=== PATIENT | female | born 1960 | race Caucasian/White ===

== ENCOUNTER 2017-09-13 18:12 | Emergency (ER) | payer OTHER ==
[~2017-09-13] VITALS: Ht 175.3 cm; Wt 70.0 kg
[2017-09-13 18:18] VITALS: BP 174/71; PULSE 74; RESP 16; TEMP 97.5; O2SAT 95
[2017-09-13] MEDS ORDERED: SODIUM CHLOR 0.9% 1000 ML INJ 1,000 ML IV SCH (19:11)
[2017-09-13] MEDS ORDERED: METOCLOPRAMIDE HCL 10 MG/2 ML VIAL IV PUSH ONE (19:15)
[2017-09-13] MEDS ORDERED: SODIUM CHLORIDE 0.9% FLUSH 10 ML FLUSH IVF PRN (19:15)
--- NOTE | 2017-09-13 19:19 | PD ---
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 Symptoms have been going on for about a week. Today the patient reports headache started this afternoon and has gradually worsened, described as pressure, frontal, currently 7 out of 10. Cough is productive of yellowish/greenish sputum. No hemoptysis. No CP. The patient is concerned about possibly being anemic. PFSH Past Medical History COPD: Yes Respiratory: Yes (COPD) Tetanus Vaccination: Unknown Influenza Vaccination: No ?: Not LMP: MENOPAUSAL Past Surgical History Abdominal Surgery: Yes Cholecystectomy: Yes Social History Alcohol Use: No Tobacco Use: Yes Substance Use: No Allergies-Medications (Allergen,Severity, Reaction): Coded Allergies: Sulfa (Sulfonamide Antibiotics) (Verified Allergy, Intermediate, HIVES, 09/13/17) Reported Meds & Prescriptions Reported Meds & Active Scripts Active Reported Prednisone (21) 10 mg tab Dose Pack (Prednisone) 10 Mg Pack 10 Mg PO DIRECTED Prozac (Fluoxetine HCl) 20 Mg Cap 20 Mg PO DAILY Review of Systems Except as stated in HPI: all other systems reviewed are Neg Physical Exam Narrative GENERAL: Well-developed, well-nourished, comfortable, no apparent distress. SKIN: Focused skin assessment warm/dry. No rash. HEAD: Atraumatic. Normocephalic. EYES: Pupils equal, round, 3 mm, reactive to light. No scleral icterus. No injection or drainage. ENT: No nasal bleeding or discharge. Mucous membranes pink and moist. NECK: Trachea midline. No JVD. No nuchal rigidity. CARDIOVASCULAR: Regular rate and rhythm. RESPIRATORY: No accessory muscle use. Clear to auscultation. Breath sounds equal bilaterally. GASTROINTESTINAL: Abdomen soft, non-tender, nondistended. MUSCULOSKELETAL: No obvious deformities. No clubbing. No cyanosis. No edema. NEUROLOGICAL: Awake and alert. No obvious cranial nerve deficits. Motor grossly within normal limits. Normal speech. PSYCHIATRIC: Appropriate mood and affect; insight and judgment normal. Data Data Last Documented VS Vital Signs Date Time Temp Pulse Resp B/P (MAP) Pulse Ox O2 Delivery O2 Flow Rate FiO2 09/13/17 21:18 69 16 165/66 (99) 97 Room Air 09/13/17 18:18 97.5 Orders Orders Complete Blood Count With Diff (09/13/17 19:11) Comprehensive Metabolic Panel (09/13/17 19:11) Act Partial Throm Time (Ptt) (09/13/17 19:11) Prothrombin Time / Inr (Pt) (09/13/17 19:11) Urinalysis - C+S If Indicated (09/13/17 19:11) Influenzae A/B Antigen (09/13/17 19:11) Iv Access Insert/Monitor (09/13/17 19:11) Ecg Monitoring (09/13/17 19:11) Oximetry (09/13/17 19:11) Chest, Single Ap (09/13/17 19:11) Sodium Chloride 0.9% Flush (Ns Flush) (09/13/17 19:15) Ct Brain W/O Iv Contrast(Rout) (09/13/17 ) Type And Screen (09/13/17 19:11) Metoclopramide Inj (Reglan Inj) (09/13/17 19:15) Sodium Chlor 0.9% 1000 Ml Inj (Ns 1000 M (09/13/17 19:11) Ketorolac Inj (Toradol Inj) (09/13/17 20:45) Ct Pulmonary Angiogram (09/13/17 20:36) Iohexol 350 Inj (Omnipaque 350 Inj) (09/13/17 21:20) Cefuroxime (Ceftin) (09/13/17 21:45) Labs Laboratory Tests Test 09/13/17 20:00 09/13/17 21:17 White Blood Count 9.3 TH/MM3 Red Blood Count 5.19 MIL/MM3 Hemoglobin 14.2 GM/DL Hematocrit 43.9 % Mean Corpuscular Volume 84.5 FL Mean Corpuscular Hemoglobin 27.4 PG Mean Corpuscular Hemoglobin Concent 32.4 % Red Cell Distribution Width 18.2 % Platelet Count 231 TH/MM3 Mean Platelet Volume 9.1 FL Neutrophils (%) (Auto) 63.5 % Lymphocytes (%) (Auto) 22.4 % Monocytes (%) (Auto) 6.5 % Eosinophils (%) (Auto) 6.9 % Basophils (%) (Auto) 0.7 % Neutrophils # (Auto) 5.9 TH/MM3 Lymphocytes # (Auto) 2.1 TH/MM3 Monocytes # (Auto) 0.6 TH/MM3 Eosinophils # (Auto) 0.6 TH/MM3 Basophils # (Auto) 0.1 TH/MM3 CBC Comment DIFF FINAL Differential Comment Prothrombin Time 10.3 SEC Prothromb Time International Ratio 1.0 RATIO Activated Partial Thromboplast Time 25.1 SEC Blood Urea Nitrogen 16 MG/DL Creatinine 0.70 MG/DL Random Glucose 94 MG/DL Total Protein 7.4 GM/DL Albumin 3.8 GM/DL Calcium Level 10.1 MG/DL Alkaline Phosphatase 39 U/L Aspartate Amino Transf (AST/SGOT) 14 U/L Alanine Aminotransferase (ALT/SGPT) 23 U/L Total Bilirubin 0.4 MG/DL Sodium Level 139 MEQ/L Potassium Level 3.7 MEQ/L Chloride Level 104 MEQ/L Carbon Dioxide Level 26.5 MEQ/L Anion Gap 9 MEQ/L Estimat Glomerular Filtration Rate 86 ML/MIN Urine Color YELLOW Urine Turbidity CLEAR Urine pH 5.5 Urine Specific Aiken 1.020 Urine Protein NEG mg/dL Urine Glucose (UA) NEG mg/dL Urine Ketones NEG mg/dL Urine Occult Blood TRACE Urine Nitrite NEG Urine Bilirubin NEG Urine Leukocyte Esterase NEG Urine RBC 0-3 /hpf Urine WBC 0-2 /hpf Urine Squamous Epithelial Cells 0-5 /hpf Urine Mucus FEW /lpf Microscopic Urinalysis Comment CULT NOT INDICATED MDM Medical Decision Making Medical Screen Exam Complete: Yes Emergency Medical Condition: Yes Differential Diagnosis Influenza/flulike illness, URI, pneumonia, anemia, intracranial abnormality, SAH /meningitis/encephalitis unlikely Narrative Course Initial vital signs show heart rate 74, blood pressure 174/71, pulse ox 95% on room air, oral temp of 97.5F. CBC: WBC 9.3, hemoglobin 14.2, hematocrit 43.9, platelets 231, neutrophils 63.5% . CMP is unremarkable. Influenza is negative. Chest x-ray: Minimal bibasilar densities. Ct pulmonary/angiogram: CONCLUSION: 1. No evidence for pulmonary embolus. 2. Debris/mucus within bronchi bilaterally and minimal bibasilar patchy infiltrates. CT head: No acute intracranial disease. Right maxillary sinus disease. The patient was made aware of all findings. She is resting comfortably. She is not in any respiratory distress. O2 saturation is 98% on room air. Plan is to start her on Ceftin which will cover not only her sinusitis but also her pneumonia and have her follow-up with her primary care physician within the next week. Patient is amenable to this plan. She was informed on when to return to the emergency department. She verbalizes understanding and agreement with plan. Diagnosis Primary Impression: Pneumonia Qualified Codes: J18.9 - Pneumonia, unspecified organism Additional Impression: Sinusitis Qualified Codes: J01.00 - Acute maxillary sinusitis, unspecified Referrals: Primary Care Physician 3 days Additional Instructions: Follow-up with your primary care physician this week. Take antibiotic as prescribed. Return to the emergency department for worsening symptoms or any other concerns. Scripts Cefuroxime (Ceftin) 250 Mg Tab 500 MG PO BID for 10 Days, #40 TAB Prov: Juve Floyd MD 09/13/17 Disposition: 01 DISCHARGE HOME Condition: Stable Juve Floyd MD Sep 13, 2017 19:19
[2017-09-13] MEDS ORDERED: PROZ20CA11 PO (19:33)
[2017-09-13] MEDS ORDERED: PRED10PA PO (19:34)
[2017-09-13 20:12] VITALS: BP 162/61; PULSE 63; RESP 16; O2SAT 95
[2017-09-13 20:13] VITALS: O2SAT 96
[2017-09-13 20:16] LABS: AUTOMATED NEUTROPHIL # 5.9 TH/MM3 (1.8-7.7); BASOPHIL # 0.1 TH/MM3 (0-0.2); BASOPHIL % 0.7 % (0.0-2.0); EOSINOPHIL # 0.6 TH/MM3 (0-0.4); EOSINOPHIL % 6.9 % (0.0-4.0); HEMATOCRIT 43.9 % (35.0-46.0); HEMOGLOBIN 14.2 GM/DL (11.6-15.3); LYMPH % 22.4 % (9.0-44.0); LYMPHOCYTE # 2.1 TH/MM3 (1.0-4.8); MEAN CELL VOLUME 84.5 FL (80.0-100.0); MEAN CORPUSCULAR HEMOGLOBIN 27.4 PG (27.0-34.0); MEAN CORPUSCULAR HGB CONC 32.4 % (32.0-36.0); MEAN PLATELET VOLUME 9.1 FL (7.0-11.0); MONO % 6.5 % (0.0-8.0); MONOCYTE # 0.6 TH/MM3 (0-0.9); NEUT % 63.5 % (16.0-70.0); PLATELET COUNT 231 TH/MM3 (150-450); RED BLOOD COUNT 5.19 MIL/MM3 (4.00-5.30); RED CELL DISTRIBUTION WIDTH 18.2 % (11.6-17.2); WHITE BLOOD COUNT 9.3 TH/MM3 (4.0-11.0)
--- NOTE | 2017-09-13 20:23 | RADRPT ---
EXAM DATE/TIME: 09/13/2017 20:13 [facility] COMPARISON: No previous studies available for comparison. INDICATIONS : Weakness, body aches, and fever for 1 month. MEDICAL HISTORY : Chronic obstructive pulmonary disease. SURGICAL HISTORY : None. ENCOUNTER: Initial ACUITY: 1 month PAIN SCORE: 0/10 LOCATION: Bilateral chest FINDINGS: A single view of the chest demonstrates minimal radiopaque densities in the lung bases. The cardiomed iastinal contours are unremarkable. Old left-sided left eighth rib fracture. CONCLUSION: Minimal bibasilar densities. Navi Nixon MD on September 13, 2017 at 20:18 Board Certified Radiologist. This report was verified electronically.
[2017-09-13 20:24] LABS: CHLORIDE 104 MEQ/L (98-107); SODIUM (NA) 139 MEQ/L (136-145)
[2017-09-13 20:27] LABS: CALCIUM 10.1 MG/DL (8.5-10.1)
[2017-09-13 20:28] LABS: ALBUMIN 3.8 GM/DL (3.4-5.0); BICARBONATE 26.5 MEQ/L (21.0-32.0); BLOOD UREA NITROGEN 16 MG/DL (7-18); GLUCOSE,RANDOM 94 MG/DL (74-106)
[2017-09-13 20:30] LABS: PROTHROMBIN TIME - PATIENT 10.3 SEC (9.8-11.6)
[2017-09-13 20:31] LABS: ALT (GPT) 23 U/L (10-53); AST (GOT) 14 U/L (15-37); GLOMERULAR FILTRATION RATE 86 ML/MIN (>89)
[2017-09-13 20:32] LABS: TOTAL BILIRUBIN ADULT 0.4 MG/DL (0.2-1.0); TOTAL PROTEIN 7.4 GM/DL (6.4-8.2)
[2017-09-13 20:34] LABS: ALKALINE PHOSPHATASE 39 U/L (45-117)
--- NOTE | 2017-09-13 20:41 | RADRPT ---
EXAM DATE/TIME: 09/13/2017 20:17 [facility] COMPARISON: No previous studies available for comparison. INDICATIONS : Cephalgia. RADIATION DOSE: 61.31 CTDIvol (mGy) MEDICAL HISTORY : Chronic obstructive pulmonary disease. SURGICAL HISTORY : None. ENCOUNTER: Initial ACUITY: 3 days PAIN SCALE: 7/10 LOCATION: Bilateral frontal TECHNIQUE: Multiple contiguous axial images were obtained of the head. Using automated exposure control and adj ustment of the mA and/or kV according to patient size, radiation dose was kept as low as reasonably a chievable to obtain optimal diagnostic quality images. DICOM format image data is available electro nically for review and comparison. FINDINGS: CEREBRUM: The ventricles are normal for age. No evidence of midline shift, mass lesion, hemorrhage or acute in farction. No extra-axial fluid collections are seen. POSTERIOR FOSSA: The cerebellum and brainstem are intact. The 4th ventricle is midline. The cerebellopontine angle i s unremarkable. EXTRACRANIAL: The visualized portion of the orbits is intact. Density right maxillary sinus. SKULL: The calvaria is intact. No evidence of skull fracture. CONCLUSION: No acute intracranial disease. Right maxillary sinus disease. Navi Nixon MD on September 13, 2017 at 20:38 Board Certified Radiologist. This report was verified electronically.
[2017-09-13] MEDS ORDERED: KETOROLAC TROMETHAMINE 30 MG/ML (IVP) VIAL IV PUSH ONE (20:45)
[2017-09-13 21:18] VITALS: BP 165/66; PULSE 69; RESP 16; O2SAT 97
[2017-09-13] MEDS ORDERED: IOHEXOL 350 MG/ML 10 ML VIAL (for RAD DIAG) IVCONTRAST ONE (21:20)
[2017-09-13 21:25] LABS: BILIRUBIN, URINE NEG (NEG); BLOOD, URINE TRACE (NEG); GLUCOSE,URINE NEG (NEG); KETONE, URINE NEG (NEG); NITRITE,URINE NEG (NEG); PH, URINE 5.5 (5.0-8.5); URINE LEUKOCYTE ESTERASE NEG (NEG)
--- NOTE | 2017-09-13 21:26 | RADRPT ---
EXAM DATE/TIME: 09/13/2017 21:00 [facility] COMPARISON: CHEST SINGLE AP, September 13, 2017, 20:13. INDICATIONS : Shortness of breath. IV CONTRAST: 75 cc Omnipaque 350 (iohexol) IV RADIATION DOSE: 11.08 CTDIvol (mGy) MEDICAL HISTORY : Chronic obstructive pulmonary disease. HIV. SURGICAL HISTORY : None. ENCOUNTER: Initial ACUITY: 3 days PAIN SCALE: 0/10 LOCATION: chest TECHNIQUE: Volumetric scanning of the chest was performed using a pulmonary embolism protocol MIP images were re constructed. Using automated exposure control and adjustment of the mA and/or kV according to patien t size, radiation dose was kept as low as reasonably achievable to obtain optimal diagnostic quality images. DICOM format image data is available electronically for review and comparison. Follow-up recommendations for detected pulmonary nodules are based at a minimum on nodule size and pa tient risk factors according to Fleischner Society Guidelines. FINDINGS: PULMONARY ARTERIES: No filling defects are seen in the pulmonary arteries through the segmental level. LUNGS: There is minimal bibasilar patchy infiltrates. No concerning pulmonary nodule is visualized. Filling defects within lingular, left lower lobe, right lower lobe and right middle lobe bronchi. PLEURAE: There is no pleural thickening or pleural effusion. MEDIASTINUM: There is good visualization of the great vessels of the middle mediastinum. No evidence of mediastin al or hilar adenopathy/mass. MUSCULOSKELETAL: Within normal limits for patient age. MISCELLANEOUS: The visualized upper abdominal organs demonstrate no acute abnormality. CONCLUSION: 1. No evidence for pulmonary embolus. 2. Debris/mucus within bronchi bilaterally and minimal bibasilar patchy infiltrates. Navi Nixon MD on September 13, 2017 at 21:21 Board Certified Radiologist. This report was verified electronically.
[2017-09-13 21:31] LABS: URINE COLOR YELLOW (YELLW/STRAW)
[2017-09-13 21:32] LABS: MUCUS URINE FEW /lpf (OCC); SQUAMOUS EPITHELIAL CELL URINE 0-5 /hpf (0-5)
[2017-09-13 21:33] LABS: RBC, URINE 0-3 /hpf (0-3); WBC, URINE 0-2 /hpf (0-5)
[2017-09-13] MEDS ORDERED: CEFU1TAB18 PO (21:36)
[2017-09-13] MEDS ORDERED: CEFUROXIME AXETIL 500 MG TAB PO ONE (21:45)
== END 2017-09-13 22:23 | disposition home or self-care (01) ==
LOC: PHED 18:12
DX: J18.9 Pneumonia, unspecified organism (principal); J01.00 Acute maxillary sinusitis, unspecified; J44.0 Chronic obstructive pulmonary disease with (acute) lower respiratory infection; Z21 Asymptomatic human immunodeficiency virus [HIV] infection status; Z72.0 Tobacco use; Z88.2 Allergy status to sulfonamides; Z90.49 Acquired absence of other specified parts of digestive tract; Z79.899 Other long term (current) drug therapy
CPT/HCPCS: 70450; 71045; 71275; 80053; 81001; 85025; 85610; 85730; 86850; 86900; 86901; 87804; 96361; 96374; 96375; 99285; J1885; J2765; J7030; Q9967

== ENCOUNTER 2017-10-15 14:11 | Emergency (ER) | payer OTHER ==
[~2017-10-15] VITALS: Ht 172.7 cm; Wt 71.4 kg
[~2017-10-15 14:11] MED LIST: CEFU1TAB18 PO; PRED10PA PO; PROZ20CA11 PO
[2017-10-15 14:20] VITALS: BP 110/56; PULSE 79; RESP 16; TEMP 98.6; O2SAT 95
[2017-10-15] MEDS ORDERED: VENTAER INH (14:39)
[2017-10-15] MEDS ORDERED: LAMO25 PO (14:39)
[2017-10-15] MEDS ORDERED: EMTR1TAB2 PO (14:39)
--- NOTE | 2017-10-15 14:43 | PD ---
HPI Chief Complaint: Cold / Flu Symptoms Time Seen by Provider: 14:28 Travel History International Travel<30 days: No Contact w/Intl Traveler<30days: No Traveled to known affect area: No History of Present Illness HPI This is a 57-year-old female with history of HIV on HARRT. Reports last viral load was undetectable and CD4 count was "normal/good". She reports history of cough for approximately one month. She was originally seen and diagnosed with pneumonia. At the time she was started on antibiotics which improved her symptoms. Small 2 weeks ago her was hospitalized and she spent an extended period of time in the hospital with him. Her cough and symptoms were emergency approximately one week ago. He reports subjective fever last week. No fevers currently. Reporting a productive cough with colored phlegm. Denies chest pain or shortness breath. Severity is moderate. No aggravating or alleviating factors PFSH Past Medical History COPD: Yes Immune Disorder: Yes (HIV) Respiratory: Yes (asthma) ?: Not Past Surgical History Abdominal Surgery: Yes Cholecystectomy: Yes Social History Alcohol Use: No Tobacco Use: No (states quit 7 years ago ) Substance Use: No Allergies-Medications (Allergen,Severity, Reaction): Coded Allergies: Cephalosporins (Verified Allergy, Severe, Hives, 10/15/17) Sulfa (Sulfonamide Antibiotics) (Verified Allergy, Intermediate, HIVES, 10/15/17) Reported Meds & Prescriptions Reported Meds & Active Scripts Active Reported Ventolin Hfa 18 GM Inh (Albuterol Sulfate) 90 Mcg/Act Aer 2 Puff INH Q4-6H PRN Lamictal (Lamotrigine) 25 Mg Tab 25 Mg PO DAILY Odefsey (Spwhfgkupxfph-Byxelidnylv-Iripmlwnp Alafenam) 200-200-25 Mg Tab 1 Tab PO DAILY Prozac (Fluoxetine HCl) 20 Mg Cap 20 Mg PO DAILY Review of Systems Except as stated in HPI: all other systems reviewed are Neg General / Constitutional: No: Fever Eyes: No: Visual changes HENT: Positive: Headaches, Congestion Cardiovascular: No: Chest Pain or Discomfort Respiratory: Positive: Cough Gastrointestinal: No: Abdominal Pain Genitourinary: No: Dysuria Musculoskeletal: No: Pain Physical Exam Narrative GENERAL: Alert and nontoxic-appearing 49-year-old female SKIN: Warm and dry. No rash HEAD: Normocephalic. EYES: No injection or drainage. NECK: Supple. No meningismus. CARDIOVASCULAR: Regular rate and rhythm RESPIRATORY: Breath sounds equal bilaterally. No accessory muscle use. Rhonchorous cough GASTROINTESTINAL: Abdomen soft, non-tender, nondistended. MUSCULOSKELETAL: No cyanosis, or edema. BACK: Nontender without obvious deformity. No CVA tenderness. Data Data Last Documented VS Vital Signs Date Time Temp Pulse Resp B/P (MAP) Pulse Ox O2 Delivery O2 Flow Rate FiO2 10/15/17 14:20 98.6 79 16 110/56 (74) 95 Orders Orders Influenzae A/B Antigen (10/15/17 14:49) Chest, Single Ap (10/15/17 ) MDM Medical Decision Making Medical Screen Exam Complete: Yes Emergency Medical Condition: Yes Differential Diagnosis Pneumonia, bronchitis, influenza Narrative Course 57-year-old female here with cough and left-sided rib pain intermittently for one month. Patient is nontoxic-appearing. She was originally treated for pneumonia one month ago he reports symptom improvement with antibiotics. Symptoms returned approximately 2 weeks ago. She has a rhonchorous cough. cxr: Negative for acute disease Influenza: Negative This was discussed with patient and family. She'll be treated for bronchitis. She is instructed to follow-up with her primary doctor for recheck. Return for acute worsening of the symptoms. Diagnosis Primary Impression: Bronchitis Referrals: Primary Care Physician Additional Instructions: Medications as prescribed. Stay Well-hydrated by drinking plenty of fluids Use her albuterol inhaler as needed for shortness of breath and wheezing. Follow-up the primary doctor for recheck. Return if he developed acute worsening of symptoms Scripts Benzonatate (Tessalon Perles) 100 Mg Cap 200 MG PO TID Y for COUGH, #14 CAP 0 Refills Prov: Lynne Palencia 10/15/17 Levofloxacin (Levaquin) 500 Mg Tablet 500 MG PO DAILY for Infection for 7 Days, #7 TAB 0 Refills Prov: Lynne Palencia 10/15/17 Disposition: 01 DISCHARGE HOME Condition: Stable Lynne Palencia Oct 15, 2017 14:43
--- NOTE | 2017-10-15 15:10 | RADRPT ---
EXAM DATE/TIME: 10/15/2017 14:57 [facility] COMPARISON: CHEST SINGLE AP, September 13, 2017, 20:13. INDICATIONS : Fever, left side chest pain, nausea, fatigue MEDICAL HISTORY : HIV Chronic obstructive pulmonary disease. SURGICAL HISTORY : None. ENCOUNTER: Initial ACUITY: 1 month PAIN SCORE: 10/10 LOCATION: Bilateral chest FINDINGS: The lungs are clear without infiltrate, nodule, or mass. There is no appreciable pleural effusion fo r technique. Heart and mediastinum are unremarkable. CONCLUSION: No acute cardiopulmonary disease. Pat Reese MD on October 15, 2017 at 15:07 Board Certified Radiologist. This report was verified electronically.
[2017-10-15] MEDS ORDERED: BENZ100 PO (15:42)
[2017-10-15] MEDS ORDERED: LEVA500T33 PO (15:42)
[2017-10-15] MEDS ORDERED: LEVOFLOXACIN 500 MG TAB PO ONE (16:00)
== END 2017-10-15 15:57 | disposition home or self-care (01) ==
LOC: PHEFT 14:11
DX: J40 Bronchitis, not specified as acute or chronic (principal); J44.9 Chronic obstructive pulmonary disease, unspecified; Z21 Asymptomatic human immunodeficiency virus [HIV] infection status; Z87.891 Personal history of nicotine dependence; Z88.2 Allergy status to sulfonamides; Z88.8 Allergy status to other drugs, medicaments and biological substances; Z79.899 Other long term (current) drug therapy
CPT/HCPCS: 71045; 87804; 99284

== ENCOUNTER 2017-10-20 11:11 | Emergency (ER) | payer OTHER ==
[~2017-10-20] VITALS: Ht 175.3 cm; Wt 70.0 kg
[~2017-10-20 11:11] MED LIST changes: +BENZ100 PO; -CEFU1TAB18 PO; +EMTR1TAB2 PO; +LAMO25 PO; +LEVA500T33 PO; -PRED10PA PO; +VENTAER INH
[2017-10-20 11:13] VITALS: BP 119/82; PULSE 78; RESP 14; TEMP 98.2; O2SAT 98
[2017-10-20 11:41] VITALS: BP 142/66; PULSE 71; RESP 17; O2SAT 97
[2017-10-20] MEDS ORDERED: SODIUM CHLORIDE 0.9% FLUSH 10 ML FLUSH IVF PRN (11:45)
--- NOTE | 2017-10-20 11:58 | PD ---
HPI Chief Complaint: Respiratory Symptoms Time Seen by Provider: 11:40 Travel History International Travel<30 days: No Contact w/Intl Traveler<30days: No Traveled to known affect area: No History of Present Illness HPI This is a pleasant 57-year-old female with history of HIV on HARRT, last viral load is undetectable and CD4 is more than "GOOD". Patient was recently diagnosed with bronchitis and was put on Levaquin last week. She has been compliant with her antibiotics, she had 3 more doses to take. She is here for fever that comes and goes, T-max is 101.2 that was 2 days ago, cough productive of yellow sputum, night sweats. She says that her cough is getting better but wanted to come to the ER to get checked out. Denies any chest pain, no recent travel although reports visiting her in the hospital in the last week. Patient used to smoke regularly, she has history of COPD only taking albuterol inhaler as needed. She had to use her albuterol inhaler 4 times in the last week. She denies any shortness of breath. She is currently not in acute distress breathing comfortably on bed and speaks in full sentences. PFSH Past Medical History Depression: Yes COPD: Yes Immune Disorder: Yes (HIV) Respiratory: Yes Tetanus Vaccination: > 5 Years Influenza Vaccination: No ?: Not Past Surgical History Abdominal Surgery: Yes Cholecystectomy: Yes Social History Alcohol Use: No Tobacco Use: No Substance Use: No Allergies-Medications (Allergen,Severity, Reaction): Coded Allergies: Cephalosporins (Verified Allergy, Severe, Hives, 10/20/17) Sulfa (Sulfonamide Antibiotics) (Verified Allergy, Intermediate, HIVES, 10/20/17) Reported Meds & Prescriptions Reported Meds & Active Scripts Active Tessalon Perles (Benzonatate) 100 Mg Cap 200 Mg PO TID PRN Levaquin (Levofloxacin) 500 Mg Tablet 500 Mg PO DAILY 7 Days Reported Ventolin Hfa 18 GM Inh (Albuterol Sulfate) 90 Mcg/Act Aer 2 Puff INH Q4-6H PRN Odefsey (Uygvnomfkmbzm-Klttlzheljc-Jkhksxntr Alafenam) 200-200-25 Mg Tab 1 Tab PO DAILY Prozac (Fluoxetine HCl) 20 Mg Cap 20 Mg PO DAILY Review of Systems Except as stated in HPI: all other systems reviewed are Neg General / Constitutional: Positive: Fever Respiratory: Positive: Cough, Shortness of Breath Gastrointestinal: Positive: Nausea, Vomiting Physical Exam Narrative GENERAL: No acute distress, breathing comfortably, speaks in full sentences. SKIN: Focused skin assessment warm/dry. HEAD: Atraumatic. Normocephalic. EYES: Pupils equal and round. No scleral icterus. No injection or drainage. ENT: No nasal bleeding or discharge. Mucous membranes pink and moist. NECK: Trachea midline. No JVD. CARDIOVASCULAR: Regular rate and rhythm. No murmur appreciated. RESPIRATORY: No accessory muscle use. Clear to auscultation. Breath sounds equal bilaterally. GASTROINTESTINAL: Abdomen soft, non-tender, nondistended. Hepatic and splenic margins not palpable. MUSCULOSKELETAL: No obvious deformities. No clubbing. No cyanosis. No edema. NEUROLOGICAL: Awake and alert. No obvious cranial nerve deficits. Motor grossly within normal limits. Normal speech. PSYCHIATRIC: Appropriate mood and affect; insight and judgment normal. Data Data Last Documented VS Vital Signs Date Time Temp Pulse Resp B/P (MAP) Pulse Ox O2 Delivery O2 Flow Rate FiO2 10/20/17 11:41 71 17 142/66 (91) 97 Room Air 10/20/17 11:13 98.2 Orders Orders Electrocardiogram (10/20/17 11:43) Complete Blood Count With Diff (10/20/17 11:43) Comprehensive Metabolic Panel (10/20/17 11:43) Chest, Pa & Lat (10/20/17 11:43) Sodium Chloride 0.9% Flush (Ns Flush) (10/20/17 11:45) Ondansetron Inj (Zofran Inj) (10/20/17 13:00) Labs Laboratory Tests Test 10/20/17 11:50 White Blood Count 5.5 TH/MM3 Red Blood Count 5.17 MIL/MM3 Hemoglobin 15.1 GM/DL Hematocrit 43.0 % Mean Corpuscular Volume 83.2 FL Mean Corpuscular Hemoglobin 29.2 PG Mean Corpuscular Hemoglobin Concent 35.1 % Red Cell Distribution Width 15.8 % Platelet Count 143 TH/MM3 Mean Platelet Volume 9.1 FL Neutrophils (%) (Auto) 52.9 % Lymphocytes (%) (Auto) 34.1 % Monocytes (%) (Auto) 8.5 % Eosinophils (%) (Auto) 3.8 % Basophils (%) (Auto) 0.7 % Neutrophils # (Auto) 2.9 TH/MM3 Lymphocytes # (Auto) 1.9 TH/MM3 Monocytes # (Auto) 0.5 TH/MM3 Eosinophils # (Auto) 0.2 TH/MM3 Basophils # (Auto) 0.0 TH/MM3 CBC Comment DIFF FINAL Differential Comment Blood Urea Nitrogen 7 MG/DL Creatinine 0.74 MG/DL Random Glucose 90 MG/DL Total Protein 8.1 GM/DL Albumin 3.9 GM/DL Calcium Level 9.0 MG/DL Alkaline Phosphatase 36 U/L Aspartate Amino Transf (AST/SGOT) 26 U/L Alanine Aminotransferase (ALT/SGPT) 18 U/L Total Bilirubin 0.5 MG/DL Sodium Level 135 MEQ/L Potassium Level 3.7 MEQ/L Chloride Level 101 MEQ/L Carbon Dioxide Level 25.7 MEQ/L Anion Gap 8 MEQ/L Estimat Glomerular Filtration Rate 81 ML/MIN MDM Medical Decision Making Medical Screen Exam Complete: Yes Emergency Medical Condition: Yes Medical Record Reviewed: Yes Interpretation(s) Last 24 hours Impressions Chest X-Ray 10/20/17 1143 Signed Impressions: Service Date/Time: October 12:02 - CONCLUSION: The lungs are clear. No infiltrate seen. Julien Rodriguez MD Laboratory Tests Test 10/20/17 11:50 White Blood Count 5.5 TH/MM3 (4.0-11.0) Red Blood Count 5.17 MIL/MM3 (4.00-5.30) Hemoglobin 15.1 GM/DL (11.6-15.3) Hematocrit 43.0 % (35.0-46.0) Mean Corpuscular Volume 83.2 FL (80.0-100.0) Mean Corpuscular Hemoglobin 29.2 PG (27.0-34.0) Mean Corpuscular Hemoglobin Concent 35.1 % (32.0-36.0) Red Cell Distribution Width 15.8 % (11.6-17.2) Platelet Count 143 TH/MM3 (150-450) Mean Platelet Volume 9.1 FL (7.0-11.0) Neutrophils (%) (Auto) 52.9 % (16.0-70.0) Lymphocytes (%) (Auto) 34.1 % (9.0-44.0) Monocytes (%) (Auto) 8.5 % (0.0-8.0) Eosinophils (%) (Auto) 3.8 % (0.0-4.0) Basophils (%) (Auto) 0.7 % (0.0-2.0) Neutrophils # (Auto) 2.9 TH/MM3 (1.8-7.7) Lymphocytes # (Auto) 1.9 TH/MM3 (1.0-4.8) Monocytes # (Auto) 0.5 TH/MM3 (0-0.9) Eosinophils # (Auto) 0.2 TH/MM3 (0-0.4) Basophils # (Auto) 0.0 TH/MM3 (0-0.2) CBC Comment DIFF FINAL Differential Comment Blood Urea Nitrogen 7 MG/DL (7-18) Creatinine 0.74 MG/DL (0.50-1.00) Random Glucose 90 MG/DL (74-106) Total Protein 8.1 GM/DL (6.4-8.2) Albumin 3.9 GM/DL (3.4-5.0) Calcium Level 9.0 MG/DL (8.5-10.1) Alkaline Phosphatase 36 U/L (45-117) Aspartate Amino Transf (AST/SGOT) 26 U/L (15-37) Alanine Aminotransferase (ALT/SGPT) 18 U/L (10-53) Total Bilirubin 0.5 MG/DL (0.2-1.0) Sodium Level 135 MEQ/L (136-145) Potassium Level 3.7 MEQ/L (3.5-5.1) Chloride Level 101 MEQ/L (98-107) Carbon Dioxide Level 25.7 MEQ/L (21.0-32.0) Anion Gap 8 MEQ/L (5-15) Estimat Glomerular Filtration Rate 81 ML/MIN (>89) Vital Signs Date Time Temp Pulse Resp B/P (MAP) Pulse Ox O2 Delivery O2 Flow Rate FiO2 10/20/17 11:41 71 17 142/66 (91) 97 Room Air 10/20/17 11:13 98.2 78 14 119/82 (94) 98 Differential Diagnosis Bronchitis, URI, pneumonia, sinusitis. Narrative Course This is a 57-year-old female with history of HIV on HARRT, she had pneumonia back in September 13, and had a CT angiogram of the chest that showed patchy infiltrate and was started on Ceftin, she again had bronchitis a week ago and was started on Levaquin, she is compliant with her medication and had 3 more doses to take, she follows up at the HIV clinic, she refused influenza test and stated that she had it a week ago. She denies any shortness of breath she appears comfortable speaks in full sentences in no acute distress. Chest x-ray shows no infiltrate labs within normal limits, patient is not in acute distress. I explained to the patient that she needs to give time for the antibiotics to work, she agrees with the plan, will add Advair to be used twice a day since the patient has history of COPD and smoking. Patient agrees to continue the antibiotics for 3 more days and to follow-up with her primary care physician. Diagnosis Primary Impression: Bronchitis Patient Instructions: Acute Bronchitis (ED), General Instructions Scripts Fluticasone-Salmeterol 12 GM Inh (Advair Hfa 12 GM Inh) 115-21 Mcg/Act Aer 2 PUFF INH BID for 28 Days, #1 INHALER 0 Refills Prov: Estevan Arroyo MD 10/20/17 Disposition: 01 DISCHARGE HOME Condition: Stable Estevan Arroyo MD Oct 20, 2017 11:58
[2017-10-20 12:10] LABS: AUTOMATED NEUTROPHIL # 2.9 TH/MM3 (1.8-7.7); BASOPHIL % 0.7 % (0.0-2.0); EOSINOPHIL # 0.2 TH/MM3 (0-0.4); EOSINOPHIL % 3.8 % (0.0-4.0); HEMOGLOBIN 15.1 GM/DL (11.6-15.3); LYMPH % 34.1 % (9.0-44.0); LYMPHOCYTE # 1.9 TH/MM3 (1.0-4.8); MEAN CELL VOLUME 83.2 FL (80.0-100.0); MEAN CORPUSCULAR HEMOGLOBIN 29.2 PG (27.0-34.0); MEAN CORPUSCULAR HGB CONC 35.1 % (32.0-36.0); MEAN PLATELET VOLUME 9.1 FL (7.0-11.0); MONO % 8.5 % (0.0-8.0); MONOCYTE # 0.5 TH/MM3 (0-0.9); NEUT % 52.9 % (16.0-70.0); PLATELET COUNT 143 TH/MM3 (150-450); RED BLOOD COUNT 5.17 MIL/MM3 (4.00-5.30); RED CELL DISTRIBUTION WIDTH 15.8 % (11.6-17.2); WHITE BLOOD COUNT 5.5 TH/MM3 (4.0-11.0)
[2017-10-20 12:34] LABS: ALBUMIN 3.9 GM/DL (3.4-5.0); ALT (GPT) 18 U/L (10-53); AST (GOT) 26 U/L (15-37); BICARBONATE 25.7 MEQ/L (21.0-32.0); BLOOD UREA NITROGEN 7 MG/DL (7-18); CHLORIDE 101 MEQ/L (98-107); CREATININE 0.74 MG/DL (0.50-1.00); GLOMERULAR FILTRATION RATE 81 ML/MIN (>89); GLUCOSE,RANDOM 90 MG/DL (74-106); SODIUM (NA) 135 MEQ/L (136-145)
[2017-10-20 12:36] LABS: ALKALINE PHOSPHATASE 36 U/L (45-117); TOTAL BILIRUBIN ADULT 0.5 MG/DL (0.2-1.0); TOTAL PROTEIN 8.1 GM/DL (6.4-8.2)
--- NOTE | 2017-10-20 12:45 | RADRPT ---
EXAM DATE/TIME: 10/20/2017 12:02 [place] COMPARISON: No previous studies available for comparison. INDICATIONS : Short of breath, congestion for one month, productive cough for past 5 days, vertigo MEDICAL HISTORY : HIV Chronic obstructive pulmonary disease. SURGICAL HISTORY : cervical fusion ENCOUNTER: [facility] ACUITY: 1 month PAIN SCORE: 4/10 LOCATION: Bilateral chest FINDINGS: PA and lateral views of the chest demonstrate the lungs to be symmetrically aerated without evidence of mass, infiltrate or effusion. The cardiomediastinal contours are unremarkable. Healed fracture of the posterior lateral left eighth rib. intact. Anterior plate in the lower cervical region. CONCLUSION: The lungs are clear. No infiltrate seen. Julien Rodriguez MD on October 20, 2017 at 12:42 Board Certified Radiologist. This report was verified electronically.
[2017-10-20] MEDS ORDERED: ONDANSETRON HCL 4 MG/2 ML VIAL IV PUSH ONE (13:00)
[2017-10-20] MEDS ORDERED: ADVA115A INH (13:06)
[2017-10-20 13:28] VITALS: BP 136/69
--- NOTE | 2017-10-21 14:26 | EKG ---
Date Performed: 10/20/2017 Time Performed: 12:27:46 PTAGE: 57 years EKG: Sinus rhythm NORMAL ECG NO PREVIOUS TRACING DOCTOR: Chanda Gresham Interpretating Date/Time 10/21/2017 14:25:18
== END 2017-10-20 13:29 | disposition home or self-care (01) ==
LOC: NEPD 11:11
DX: J44.9 Chronic obstructive pulmonary disease, unspecified (principal); R42 Dizziness and giddiness; Z21 Asymptomatic human immunodeficiency virus [HIV] infection status; Z87.891 Personal history of nicotine dependence
CPT/HCPCS: 71046; 80053; 85025; 93005; 96374; 99284; J2405